=== PATIENT | male | born 1930 | race Asian ===

== ENCOUNTER 2016-07-23 20:06 | Emergency (ER) | payer SELFPAY ==
[~2016-07-23] VITALS: Ht 170.2 cm; Wt 81.0 kg
[2016-07-23 21:01] LABS: BASOPHIL COUNT 0.1 K/uL (0-0.1); EOSINOPHIL (%) 4.2 % (0-5); EOSINOPHIL COUNT 0.3 K/uL (0-0.3); HEMATOCRIT 38.6 % (38.0-50.0); IMMATURE GRANULOCYTE (%) 0.4 % (0.0-0.7); INSTRUMENT ABS NEUTROPHIL CT 4.2 K/uL; LYMPHOCYTE COUNT 1.3 K/uL (1.0-2.8); MCH 32.2 PG (29.0-34.0); MCHC 33.2 G/DL (30.0-36.0); MCV 97.2 FL (86-99); MEAN PLAT.VOLUME 8.9 uM^3 (9.0-12.4); MONOCYTE (%) 13.1 % (3-12); MONOCYTE COUNT 0.9 K/uL (0-0.8); NEUTROPHIL (%) 62.5 % (45-76); NEUTROPHIL COUNT 4.2 K/uL (1.8-6.4); PLATELET COUNT 137 K/uL (156-360); RBC DIS.WIDTH-CV 13.3 % (11.8-14.6); RBC DIS.WIDTH-SD 47.8 % (39-53); RED BLOOD COUNT 3.97 M/uL (4.00-5.50); WHITE BLOOD COUNT 6.7 K/uL (4.1-10.2)
[2016-07-23 21:09] LABS: CHLORIDE 105 mEq/L (99-109); POTASSIUM 4.4 mEq/L (3.7-5.4); SODIUM 135 mEq/L (136-147)
[2016-07-23 21:11] LABS: GLUCOSE 108 mg/dL (70-99)
[2016-07-23 21:12] LABS: ANION GAP 10 MEQ/L (2-14)
[2016-07-23 21:15] LABS: UREA NITROGEN (BUN) 18 mg/dL (9-23)
[2016-07-23 21:16] LABS: GFR ESTIMATE (CALCULATED) 56 mL/min/
[2016-07-23 23:54] LABS: ADD MIUA? YES; BILIRUBIN NEGATIVE; BLOOD NEGATIVE; COLOR YELLOW ((YELLOW)); GLUCOSE (STRIP) NEGATIVE; KETONES NEGATIVE; LEUKOCYTES MODERATE; NITRITE NEGATIVE; PROTEIN (STRIP) NEGATIVE; SPECIFIC GRAVITY 1.013 (1.000-1.030); UROBILINOGEN 0.2 MG/DL (0.2-1.0)
[2016-07-24 00:01] LABS: BACTERIA RARE /HPF; EPITHELIAL CELLS RARE /HPF; MUCUS NONE SEEN /LPF; RED BLOOD CELLS 20-30 /HPF (0-5); UCUL ADDED? NO; WHITE BLOOD CELLS 20-30 /HPF (0-5)
[2016-07-24] MEDS ORDERED: KEFLEX500 MG PO (00:38)
[2016-07-24 00:58] VITALS: BP 163/91
== END 2016-07-24 00:58 | disposition home or self-care (01) ==
LOC: EME 20:06
DX: N39.0 Urinary tract infection, site not specified (principal)
CPT/HCPCS: 71020; 80048; 81003; 83605; 85025; 99281; 99284

== ENCOUNTER 2016-12-08 14:16 | Inpatient (IN) | payer SELFPAY ==
[~2016-12-08] VITALS: Ht 170.2 cm; Wt 81.5 kg
[~2016-12-08 14:16] MED LIST: KEFLEX500 MG PO
[2016-12-08 16:31] LABS: HEMATOCRIT 35.8 % (38.0-50.0); MCH 32.4 PG (29.0-34.0); MCHC 34.1 G/DL (30.0-36.0); MCV 95.2 FL (86-99); MEAN PLAT.VOLUME 8.3 uM^3 (9.0-12.4); PLATELET COUNT 118 K/uL (156-360); RBC DIS.WIDTH-SD 45.5 % (39-53); RED BLOOD COUNT 3.76 M/uL (4.00-5.50); WHITE BLOOD COUNT 7.3 K/uL (4.1-10.2)
[2016-12-08 16:37] LABS: INTER. NORMALIZED RATIO 1.1; PROTHROMBIN TIME 11.6 SEC (10.2-12.9)
[2016-12-08 16:40] LABS: PTT 39.8 SEC (25-37)
[2016-12-08 16:45] LABS: CHLORIDE 95 mEq/L (99-109); POTASSIUM 3.8 mEq/L (3.7-5.4); SODIUM 125 mEq/L (136-147)
[2016-12-08 16:47] LABS: GLUCOSE 109 mg/dL (70-99)
[2016-12-08 16:48] LABS: ANION GAP 9 MEQ/L (2-14)
[2016-12-08 16:50] LABS: GFR ESTIMATE (CALCULATED) 51 mL/min/
[2016-12-08 16:51] LABS: UREA NITROGEN (BUN) 8 mg/dL (9-23)
[2016-12-08 17:09] LABS: TROP-I INTERPRETATION NEGATIVE; TROPONIN-I < 0.01 ng/mL (0.0-0.30)
[2016-12-08 17:30] LABS: ADD MIUA? YES; BILIRUBIN NEGATIVE; BLOOD SMALL; COLOR YELLOW ((YELLOW)); GLUCOSE (STRIP) NEGATIVE; KETONES NEGATIVE; LEUKOCYTES LARGE; NITRITE NEGATIVE; PROTEIN (STRIP) NEGATIVE; UROBILINOGEN 0.2 MG/DL (0.2-1.0)
[2016-12-08 17:33] LABS: BACTERIA RARE /HPF; EPITHELIAL CELLS RARE /HPF; MUCUS NONE SEEN /LPF; UCUL ADDED? YES; WHITE BLOOD CELLS TNTC /HPF (0-5)
[2016-12-08] MEDS ORDERED: LEXAPRO5 MG PO (18:33)
[2016-12-08] MEDS ORDERED: TRUSOPT 2%200 DROP/2 RIGHT EYE (18:34)
[2016-12-08] MEDS ORDERED: CALCIUM 500 MG1 EACH PO (18:34)
[2016-12-08] MEDS ORDERED: ZANTAC150 MG PO (18:34)
[2016-12-08 20:07] LABS: HDL CHOLESTEROL 35 MG/DL (Desirable>=40); LDL CHOLESTEROL 101 mg/dL (Desirable<100); NON-HDL CHOLESTEROL 130 mg/dL (Desirable<160); SAMPLE HEMOLYSIS CHECK 0; SAMPLE ICTERIC CHECK 0; SAMPLE LIPEMIA CHECK 0; TOTAL CHOLESTEROL 165 mg/dL (Desirable<200); TRIGLYCERIDES 145 MG/DL (Normal: <150)
[2016-12-08 20:41] LABS: Estimated Average Glucose 111 mg/dL (70-123); HEMOGLOBIN A1c (GLYCOHEMOGLOB) 5.5 % HGB (Below 5.7)
[2016-12-08 21:13] VITALS: BP 131/86
[2016-12-09] VITALS: BP 145/80
[2016-12-09 04:31] VITALS: BP 123/77
[2016-12-09 05:26] LABS: EOSINOPHIL (%) 0 % (0-5); HEMATOCRIT 33.8 % (38.0-50.0); IMMATURE GRANULOCYTE (%) 0.4 % (0.0-0.7); INSTRUMENT ABS NEUTROPHIL CT 1.3 K/uL; MCH 33.1 PG (29.0-34.0); MCHC 34.9 G/DL (30.0-36.0); MCV 94.9 FL (86-99); MONOCYTE (%) 2.1 % (3-12); MONOCYTE COUNT 0.1 K/uL (0-0.8); NEUTROPHIL (%) 55.6 % (45-76); NEUTROPHIL COUNT 1.3 K/uL (1.8-6.4); PLATELET COUNT 134 K/uL (156-360); RBC DIS.WIDTH-CV 13.1 % (11.8-14.6); RBC DIS.WIDTH-SD 46.1 % (39-53); RED BLOOD COUNT 3.56 M/uL (4.00-5.50); WHITE BLOOD COUNT 2.4 K/uL (4.1-10.2)
[2016-12-09 06:03] LABS: ANION GAP 9 MEQ/L (2-14); CHLORIDE 102 MEQ/L (99-109); GFR ESTIMATE (CALCULATED) > 59 mL/min/; GLUCOSE 160 mg/dL (70-99); POTASSIUM 4.5 MEQ/L (3.7-5.4); SAMPLE HEMOLYSIS CHECK 0; SAMPLE ICTERIC CHECK 0; SAMPLE LIPEMIA CHECK 0; SODIUM 127 MEQ/L (136-147); UREA NITROGEN (BUN) 8 mg/dL (9-23)
[2016-12-09 06:08] LABS: TROP-I INTERPRETATION NEGATIVE; TROPONIN-I < 0.01 ng/mL (0.0-0.30)
[2016-12-09 07:16] VITALS: BP 146/80
[2016-12-09 09:27] LABS: EOSINOPHIL (%) 0 % (0-5); IMMATURE GRANULOCYTE (%) 0.5 % (0.0-0.7); INSTRUMENT ABS NEUTROPHIL CT 2.3 K/uL; LYMPHOCYTE COUNT 1.4 K/uL (1.0-2.8); MCH 31.4 PG (29.0-34.0); MCHC 33.3 G/DL (30.0-36.0); MCV 94.2 FL (86-99); MEAN PLAT.VOLUME 8.6 uM^3 (9.0-12.4); MONOCYTE (%) 4.3 % (3-12); MONOCYTE COUNT 0.2 K/uL (0-0.8); NEUTROPHIL (%) 59.1 % (45-76); NEUTROPHIL COUNT 2.3 K/uL (1.8-6.4); PLATELET COUNT 138 K/uL (156-360); RBC DIS.WIDTH-CV 13.1 % (11.8-14.6); RBC DIS.WIDTH-SD 45.4 % (39-53); RED BLOOD COUNT 3.82 M/uL (4.00-5.50); WHITE BLOOD COUNT 3.9 K/uL (4.1-10.2)
[2016-12-09 09:33] LABS: CARBON DIOXIDE (BICARBONATE) 18.5 MEQ/L (20-31)
[2016-12-09 11:38] LABS: TROP-I INTERPRETATION NEGATIVE; TROPONIN-I < 0.01 ng/mL (0.0-0.30)
[2016-12-09 13:12] LABS: ANION GAP 9 MEQ/L (2-14); CHLORIDE 102 MEQ/L (99-109); GFR ESTIMATE (CALCULATED) > 59 mL/min/; GLUCOSE 133 mg/dL (70-99); POTASSIUM 4.2 MEQ/L (3.7-5.4); SAMPLE HEMOLYSIS CHECK 0; SAMPLE ICTERIC CHECK 0; SAMPLE LIPEMIA CHECK 0; SODIUM 129 MEQ/L (136-147); UREA NITROGEN (BUN) 9 mg/dL (9-23)
[2016-12-09 14:21] VITALS: BP 131/70
[2016-12-09 20:22] VITALS: BP 160/80
[2016-12-09 23:54] VITALS: BP 174/85
[2016-12-10 04:46] VITALS: BP 118/63
[2016-12-10 08:17] VITALS: BP 168/86
[2016-12-10 09:06] LABS: ANION GAP 8 MEQ/L (2-14); CHLORIDE 107 MEQ/L (99-109); GFR ESTIMATE (CALCULATED) > 59 mL/min/; SAMPLE HEMOLYSIS CHECK 0; SAMPLE ICTERIC CHECK 0; SAMPLE LIPEMIA CHECK 0; SODIUM 134 MEQ/L (136-147); UREA NITROGEN (BUN) 10 mg/dL (9-23)
[2016-12-10 09:09] LABS: GLUCOSE 90 mg/dL (70-99)
[2016-12-10 12:10] VITALS: BP 139/75
[2016-12-10] MEDS ORDERED: CEFDINIR300 MG PO (12:24)
[2016-12-10] MEDS ORDERED: PROBIOTIC1 EAC1 PO (12:24)
[2016-12-10] MEDS ORDERED: POLYETHYLENE GL17 GM PO (12:25)
== END 2016-12-10 13:59 | disposition home health service (06) | DRG 690 ==
LOC: EME 14:16 → EDOF 18:23 → ENRESERV 18:26 → 5WEST 20:46 → ENRESERV 12-09 11:22 → CANRESERV 12-09 11:22 → 5WEST 12-10 13:59
PROVIDERS: Emergency Medicine; Hospitalist; Nurse Practitioner Adult Health; Physician Assistant Medical
DX: N39.0 Urinary tract infection, site not specified (principal); B95.2 Enterococcus as the cause of diseases classified elsewhere; E87.1 Hypo-osmolality and hyponatremia; E86.1 Hypovolemia; E86.0 Dehydration; E87.6 Hypokalemia; R94.31 Abnormal electrocardiogram [ECG] [EKG]; J06.9 Acute upper respiratory infection, unspecified; R07.9 Chest pain, unspecified; R55 Syncope and collapse; I48.91 Unspecified atrial fibrillation; R42 Dizziness and giddiness; E03.9 Hypothyroidism, unspecified; H40.9 Unspecified glaucoma; K59.00 Constipation, unspecified; K92.1 Melena; F32.9 Major depressive disorder, single episode, unspecified; Z95.0 Presence of cardiac pacemaker
CPT/HCPCS: 70450; 71020; 74000; 80048; 80048 91; 80061; 81003; 82607; 82746; 82803; 83036; 83605; 83735; 84100; 84439; 84443; 84484; 85025; 85025 91; 85027; 85610; 85730; 87077; 87086; 87186; 92610 GN; 93005; 93880; 94640; 99281; 99285; G0378; J0696; J1644; J7030; J7050; J7512